=== PATIENT | male | born 1955 | race Caucasian/White ===

== ENCOUNTER → 2019-01-29 | Outpatient (CLI) | payer BC, OTHER ==
[~2019-01-29] VITALS: Ht 185.4 cm; Wt 136.1 kg
[~2019-01-29] MED LIST: ALEVE220 MG PO; LISINOPRIL-HCT1 EAC1 PO; OXYBUTYNIN 5 MG5 M2 PO; PEPCID20 MG PO; XARELTO15 MG PO
[2019-01-29 12:15] VITALS: BP 122/71
--- NOTE | 2019-01-29 14:29 | NUR ---
PT RECIEVED FROM IR ALERT ORIENTED, FAMILY AT BEDSIDE, GAUZE, TRANSPARENT DRESSING TO RT IJ. SITE CLEAN DRY AND INTACT. PT ON MONITORS AWAITING DISCHARGE. DENIES PAIN OR DISCOMFORT AT THIS TIME.
== END | disposition home or self-care (01) ==
LOC: CATH 06:58
DX: I87.1 Compression of vein (principal); I82.811 Embolism and thrombosis of superficial veins of right lower extremity; R22.41 Localized swelling, mass and lump, right lower limb; I10 Essential (primary) hypertension; M17.12 Unilateral primary osteoarthritis, left knee; Z98.890 Other specified postprocedural states; Z79.01 Long term (current) use of anticoagulants; Z87.891 Personal history of nicotine dependence; Z88.0 Allergy status to penicillin; Z79.899 Other long term (current) drug therapy

== ENCOUNTER → 2020-04-20 | Outpatient (CLI) | payer OTHER | LOC: SJCVCIMAG 08:07 | PROVIDERS: ATTEND Nuclear Medicine Nuclear Cardiology | DX: I87.2 Venous insufficiency (chronic) (peripheral) (principal); Z87.891 Personal history of nicotine dependence ==

== ENCOUNTER → 2020-05-10 | Outpatient (CLI) | payer OTHER | LOC: LAB 14:07 | PROVIDERS: ATTEND Family Medicine | DX: R05 Cough (principal); R07.89 Other chest pain; Z20.828 Contact with and (suspected) exposure to other viral communicable diseases ==

== ENCOUNTER → 2021-01-19 | Outpatient (CLI) | payer OTHER ==
[2021-01-19 10:53] LABS: CREATININE 1.3 mg/dL (0.7-1.3)
== END ==
LOC: CAT 09:35
PROVIDERS: ATTEND Family Medicine
DX: K44.9 Diaphragmatic hernia without obstruction or gangrene (principal); R05 Cough; R91.1 Solitary pulmonary nodule